=== PATIENT | male | born 1980 | race Two or more races ===

== ENCOUNTER 2021-10-10 07:35 | Emergency (ER) | payer SELFPAY ==
[~2021-10-10] VITALS: Ht 175.3 cm; Wt 70.0 kg
[2021-10-10 07:42] VITALS: BP 129/90
[2021-10-10 08:30] VITALS: BP 121/91
[2021-10-10 09:01] VITALS: BP 126/91
[2021-10-10] MEDS ORDERED: TRAMADOL HYDROC50 M1 PO (09:06)
[2021-10-10 09:30] VITALS: BP 116/63
[2021-10-10 10:12] VITALS: BP 116/63
== END 2021-10-10 10:13 | disposition home or self-care (01) | DRG 563 ==
LOC: ED 07:35
PROC: 2W3FX1Z Immobilization of Left Hand using Splint (ICD-10-PCS; principal; 2021-10-10)
DX: S62.305A Unspecified fracture of fourth metacarpal bone, left hand, initial encounter for closed fracture (principal); S62.307A Unspecified fracture of fifth metacarpal bone, left hand, initial encounter for closed fracture; Y04.0XXA Assault by unarmed brawl or fight, initial encounter; Y92.59 Other trade areas as the place of occurrence of the external cause